=== PATIENT | male | born 1985 | race Caucasian/White ===

== ENCOUNTER 2023-12-27 17:32 | Emergency (ER) | payer MEDICAID, OTHER ==
[~2023-12-27] VITALS: Ht 182.9 cm; Wt 97.5 kg
[2023-12-27] MEDS ORDERED: KETOROLAC TROMETHAMINE INJ 30 MG/ML VIAL ONE (19:45)
[2023-12-27] MEDS: KETOROLAC TROMETHAMINE INJ 60 MG/2 ML VIAL IM ONE (19:51)
[2023-12-27] MEDS ORDERED: IBUP-1957 PO (22:20)
[2023-12-27] MEDS ORDERED: ACET-2605 PO (22:20)
[2023-12-28 06:23] VITALS: BP 125/77; TEMP 98.5; O2SAT 98
== END 2023-12-28 06:27 | disposition home or self-care (01) ==
LOC: ER 17:34
DX: S82.51XA Displaced fracture of medial malleolus of right tibia, initial encounter for closed fracture (principal); F17.210 Nicotine dependence, cigarettes, uncomplicated; Z88.8 Allergy status to other drugs, medicaments and biological substances; X58.XXXA Exposure to other specified factors, initial encounter; Y93.89 Activity, other specified; Y92.89 Other specified places as the place of occurrence of the external cause; Y99.8 Other external cause status
CPT/HCPCS: 99285; 93971; 96372; 73610 ×2; 73630; J1885; J7030